=== PATIENT | female | born 1990 | race African-American/Black ===

== ENCOUNTER 2016-12-06 16:39 | Emergency (ER) | payer OTHER ==
[~2016-12-06] VITALS: Ht 152.4 cm; Wt 88.9 kg
[2016-12-06] MEDS ORDERED: PREDNISONE 20 MG TABLET PO ONE (17:30)
[2016-12-06] MEDS ORDERED: IPRATRPIUM/ALBUTEROL 0.5/2.5MG 3 ML NEBU. NEB ONE (17:30)
[2016-12-06 17:43] LABS: OBC FLU VALID
[2016-12-06 18:22] VITALS: BP 118/67
[2016-12-06] MEDS ORDERED: PRED20TA PO (19:15)
[2016-12-06] MEDS ORDERED: PROVENTIL HFA6.7 GM IH (19:15)
--- NOTE | 2016-12-06 19:15 | PHYS DOC ---
Past Medical History Past Medical History: No Pertinent History Past Surgical History: No Surgical History Alcohol Use: Occasionally Drug Use: None Adult General Chief Complaint Chief Complaint: SHORTNESS OF BREATH HPI HPI 26-year-old female smoker presents with a several day history of progressive cough congestion shortness of breath. She denies any fever chills or sweats. She denies nausea vomiting. She's not had any hemoptysis she states she does not have any asthma medications at home. She has not had steroids in a while.. [ ] Review of Systems Review of Systems Constitutional: Denies fever or chills [] Eyes: Denies change in visual acuity, redness, or eye pain [] HENT: Denies nasal congestion or sore throat [] Respiratory: Per history of present illness] Cardiovascular: No additional information not addressed in HPI [] GI: Denies abdominal pain, nausea, vomiting, bloody stools or diarrhea [] : Denies dysuria or hematuria [] Musculoskeletal: Denies back pain or joint pain [] Integument: Denies rash or skin lesions [] Neurologic: Denies headache, focal weakness or sensory changes [] Endocrine: Denies polyuria or polydipsia [] Current Medications Current Medications Current Medications Medications (Trade) Dose Ordered Sig/Marta Start Time Stop Time Status Last Admin Dose Admin Albuterol/ Ipratropium (Duoneb) 6 ml 1X ONCE 12/06/16 17:30 12/06/16 17:31 DC 12/06/16 17:24 6 ML Prednisone (Prednisone) 60 mg 1X ONCE 12/06/16 17:30 12/06/16 17:31 DC 12/06/16 17:25 60 MG Allergies Allergies Allergies Coded Allergies Type Severity Reaction Last Updated Verified No Known Drug Allergies 12/19/13 No Physical Exam Physical Exam Constitutional: Well developed, well nourished, no acute distress, non-toxic appearance. [] HENT: Normocephalic, atraumatic, bilateral external ears normal, oropharynx moist, no oral exudates, nose normal. [] Eyes: PERRLA, EOMI, conjunctiva normal, no discharge. [] Neck: Normal range of motion, no tenderness, supple, no stridor. [] Cardiovascular:Heart rate regular rhythm, no murmur [] Lungs & Thorax: Scattered wheezes throughout both lungs no rales [] Abdomen: Bowel sounds normal, soft, no tenderness, no masses, no pulsatile masses. [] Skin: Warm, dry, no erythema, no rash. [] Back: No tenderness, no CVA tenderness. [] Extremities: No tenderness, no cyanosis, no clubbing, ROM intact, no edema. [] Neurologic: Alert and oriented X 3, normal motor function, normal sensory function, no focal deficits noted. [] Psychologic: Affect normal, judgement normal, mood normal. [] Current Patient Data Vital Signs Vital Signs Date Time Temp Pulse Resp B/P Pulse Ox O2 Delivery O2 Flow Rate FiO2 12/06/16 17:27 98 Room Air 12/06/16 16:50 97.9 105 24 123/89 97.9 Lab Values Laboratory Tests Test 12/06/16 16:07 12/06/16 17:12 POC Urine HCG, Qualitative Hcg negative (Negative) Influenza Type A Antigen Negative (NEGATIVE) Influenza Type B Antigen Negative (NEGATIVE) EKG EKG [] Radiology/Procedures Radiology/Procedures [] Impressions: Chest x-ray: Negative exam as interpreted by me Course & Med Decision Making Course & Med Decision Making Pertinent Labs and Imaging studies reviewed. (See chart for details) ED course: Evaluation reveals a 26-year-old female smoker who was wheezing. She was given 2 DuoNeb nebs and 60 of prednisone by mouth. After these treatment modalities the wheezing completely resolved. Patient feels much better and wants to go home. I will give her Proventil inhaler as well as steroids to take for the next several days. [] Dragon Disclaimer Dragon Disclaimer This electronic medical record was generated, in whole or in part, using a voice recognition dictation system. Departure Departure Impression: Primary Impression: Asthma exacerbation Disposition: HOME, SELF-CARE Condition: IMPROVED Referrals: NO PCP (PCP) Patient Instructions: Asthma Attacks, Prevention, Asthma, Adult, Asthma, F.L.A.R.E. Additional Instructions: Thank you for allowing us to participate in your care today. Followup with your primary care physician in 3 days if your symptoms do not improve. Return to the emergency department you have any new or concerning findings. This should be evaluated by the primary care physician and any necessary consulting services for continued management within a few days after discharge. Return to emergency room if you have any new or concerning symptoms including but not limited to fever, chills, nausea, vomiting, intractable pain, any new rashes, chest pain, shortness of air, uncontrolled bleeding, difficulty breathing, and/or vision loss. You may have been prescribed medication that can change in your level of thinking and ability to operate machinery. These medications include hydrocodone and Ativan. Also, Benadryl has been known to do this as well. Be sure to check with your pharmacist and ask if the medications you've prescribed can affect your level of consciousness. I recommend not operating heavy machinery or driving while on medication such as these. Scripts Albuterol Sulfate (Proventil Hfa Inhaler)6.7 Gm [id number] Puff IH PRN Q4HRS PRN asthma #1 INHALER NS Prov:GIULIANO VICK DO 12/06/16 Prednisone 20 Mg Tablet2 Tab PO DAILY PRN COUGH #14 TAB Prov:GIULIANO VICK DO 12/06/16 GIULIANO VICK DO Dec 06, 2016 19:15
--- NOTE | 2016-12-07 08:07 | RAD ---
Portable chest, 12/06/2016: History: Shortness of breath The heart size and pulmonary vascularity are normal. No pulmonary infiltrates are seen. There is no evidence of pleural fluid. IMPRESSION: No acute cardiopulmonary abnormality is detected.
== END 2016-12-06 19:18 | disposition home or self-care (01) ==
LOC: ER 16:39
DX: J45.901 Unspecified asthma with (acute) exacerbation (principal)
CPT/HCPCS: 71010; 81025; 87804; 94640; 99285; J7512; J7620